=== PATIENT | female | born 1995 | race Caucasian/White ===

== ENCOUNTER 2020-07-17 12:00 | Day surgery (SDC) | payer OTHER ==
[~2020-07-17] VITALS: Ht 160 cm; Wt 61.2 kg
[~2020-07-17 12:00] MED LIST: BACTRIM DS TAB1 EACH PO; CLONAZEPAM1 MG PO; COLACE100 MG PO; MEDROLPACK PO; NEURONTIN800 MG PO; PERCOCET 5-3251 EACH PO
== END 2020-07-17 20:00 | disposition home or self-care (01) ==
LOC: CIR.AMB 12:00 → O/R 17:15 → CIR.AMB 20:00
PROVIDERS: ATTEND Orthopaedic Surgery Orthopaedic Surgery of the Spine
DX: M51.27 Other intervertebral disc displacement, lumbosacral region (principal); Z20.828 Contact with and (suspected) exposure to other viral communicable diseases